=== PATIENT | male | born 1990 | race African-American/Black ===

== ENCOUNTER 2018-03-12 09:45 | Emergency (ER) | payer OTHER ==
[~2018-03-12] VITALS: Ht 175.3 cm; Wt 79.4 kg
[~2018-03-12 09:45] MED LIST: ACYCLOVIR 400400 MG PO; TRAVATAN Z2.5 ML OPHTHALMIC
[2018-03-12 10:39] VITALS: BP 118/59
== END 2018-03-12 10:39 | disposition home or self-care (01) ==
LOC: ER 09:45
DX: K40.90 Unilateral inguinal hernia, without obstruction or gangrene, not specified as recurrent (principal)